=== PATIENT | male | born 1955 | race Caucasian/White ===

== ENCOUNTER 2017-07-07 07:32 | Emergency (ER) | payer BC ==
[~2017-07-07] VITALS: Ht 182.9 cm; Wt 101.2 kg
[2017-07-07 07:34] VITALS: BP 192/106
== END 2017-07-07 09:06 | disposition home or self-care (01) ==
LOC: ED 08:57
DX: S22.41XA Multiple fractures of ribs, right side, initial encounter for closed fracture (principal); I10 Essential (primary) hypertension; W18.30XA Fall on same level, unspecified, initial encounter; Y93.79 Activity, other specified sports and athletics; Y92.89 Other specified places as the place of occurrence of the external cause; Y99.8 Other external cause status
CPT/HCPCS: 93005; 99284